=== PATIENT | female | born 1955 | race Caucasian/White ===

== ENCOUNTER → 2020-11-14 | Outpatient (CLI) | payer OTHER ==
[~2020-11-14] MED LIST: 'PARAFON FORTE500 M1 PO; HYDROCODONE BIT1 T11 PO; NAPROSYN500 MG PO; PEN-VEE K500 MG PO
== END | disposition home or self-care (01) ==
LOC: US 10-31 14:00
PROVIDERS: ATTEND Nurse Practitioner Family
DX: E04.9 Nontoxic goiter, unspecified (principal)

== ENCOUNTER 2021-09-23 21:03 | Emergency (ER) | payer OTHER ==
[~2021-09-23] VITALS: Ht 157.4 cm; Wt 65.8 kg
[2021-09-23] MEDS ORDERED: PAROXETINE HCL30 MG PO (21:22)
[2021-09-23] MEDS ORDERED: ATORVASTATIN CA40 M1 PO (21:22)
[2021-09-23] MEDS ORDERED: VITAMIN D 1.25 MG (21:23)
[2021-09-23] MEDS ORDERED: AUGMENTIN 875-875 MG PO (21:32)
== END 2021-09-23 21:48 | disposition home or self-care (01) ==
LOC: ED 21:03
DX: S61.452A Open bite of left hand, initial encounter (principal); Z88.8 Allergy status to other drugs, medicaments and biological substances; Z79.899 Other long term (current) drug therapy; Z98.51 Tubal ligation status; Z98.890 Other specified postprocedural states; W55.01XA Bitten by cat, initial encounter; Y93.89 Activity, other specified; Y92.89 Other specified places as the place of occurrence of the external cause; Y99.8 Other external cause status

== ENCOUNTER → 2022-08-22 | Day surgery (SDC) | payer OTHER ==
[~2022-08-22] VITALS: Ht 157.4 cm; Wt 72.6 kg
[~2022-08-22] MED LIST changes: +ATORVASTATIN CA40 M1 PO; +AUGMENTIN 875-875 MG PO; +CALCIUM500 M1 PO; +PAROXETINE HCL30 MG PO; +VITAMIN D 1.25 MG; +ZETIA10 MG PO
[2022-08-22 12:30] VITALS: BP 139/64
[2022-08-22 13:59] VITALS: BP 120/67
[2022-08-22 14:12] VITALS: BP 120/73
[2022-08-22 14:23] VITALS: BP 106/74
== END | disposition home or self-care (01) ==
LOC: SDC 08-20 10:15
PROVIDERS: ATTEND Ophthalmology
DX: H25.811 Combined forms of age-related cataract, right eye (principal); E78.00 Pure hypercholesterolemia, unspecified; F41.9 Anxiety disorder, unspecified; M81.0 Age-related osteoporosis without current pathological fracture

== ENCOUNTER → 2022-09-19 | Day surgery (SDC) | payer OTHER ==
[~2022-09-19] VITALS: Ht 157.4 cm; Wt 71.7 kg
[2022-09-19 11:15] VITALS: BP 125/79
[2022-09-19 12:54] VITALS: BP 133/81
[2022-09-19 13:08] VITALS: BP 129/72
[2022-09-19 13:22] VITALS: BP 122/77
== END | disposition home or self-care (01) ==
LOC: SDC 09-14 13:15
PROVIDERS: ATTEND Ophthalmology
DX: H25.812 Combined forms of age-related cataract, left eye (principal); M81.0 Age-related osteoporosis without current pathological fracture

== ENCOUNTER → 2023-10-31 | Outpatient (CLI) | payer OTHER | END | disposition home or self-care (01) | LOC: MAMMO 10:49 | PROVIDERS: ATTEND Nurse Practitioner Family | DX: Z12.31 Encounter for screening mammogram for malignant neoplasm of breast (principal); N64.89 Other specified disorders of breast ==